=== PATIENT | male | born 1990 | race Hispanic/Latino ===

== ENCOUNTER 2020-11-28 23:52 | Inpatient (IN) | payer SELFPAY ==
[~2020-11-28] VITALS: Ht 177.8 cm; Wt 89.8 kg
[~2020-11-28 23:52] MED LIST: 0.9%NACL 50ML 50 ML IV ONE; ALTEPLASE 100 MG VIAL IVP ONE
[2020-11-29 00:46] LABS: CARBON DIOXIDE 30 mmol/L (21-32); CHLORIDE 100 mmol/L (101-111); CREATININE 1.1 mg/dL (0.5-1.5); GLOMERULAR FILTR. RATE CALC 84 mL/min (>60); GLUCOSE,RANDOM 115 mg/dL (70-105); POTASSIUM 3.9 mmol/L (3.5-5.1); SODIUM SERUM 139 mmol/L (136-145); UREA NITROGEN, BLOOD 24 mg/dL (7-18)
[2020-11-29 00:49] LABS: INR 0.98 (0.85-1.15); PROTHROMBIN TIME 10.7 SEC (9.6-11.6)
[2020-11-29 00:51] LABS: ALBUMIN 4.1 g/dL (3.5-5.0); ALCOHOL, BLOOD < 3 mg/dL (0-10); BILIRUBIN,TOTAL 0.4 mg/dL (0.2-1.0); CREATINE KINASE, TOTAL 363 U/L (21-232); LDL DIRECT 79 mg/dL (0-99); PARTIAL THROMBOPLASTIN TIME 27.2 SEC (26.3-35.5); TOTAL PROTEIN, SERUM 7.5 g/dL (6.0-8.3)
[2020-11-29 01:06] LABS: EOSINOPHILS % (AUTO) 4.1 % (0.0-8.0); HEMATOCRIT 42.7 % (42-54); LYMPHOCYTES % (AUTO) 43.1 % (21.0-51.0); MEAN CORPUSCULAR HEMOGLOBIN 29.6 pg (27.0-33.0); MEAN CORPUSCULAR HGB CONC 35.1 g/dL (32.0-36.0); MEAN CORPUSCULAR VOLUME 84.4 fL (79-99); NEUTROPHILS % (AUTO) 44.6 % (40.0-77.0); PLATELET COUNT (AUTO) 284 K/uL (130-400); RED BLOOD CELL COUNT(AUTO) 5.06 MIL/uL (4.50-6.20); RED CELL DISTRIBUTION WIDTH 12.4 % (11.0-15.5)
[2020-11-29 01:18] LABS: ALANINE AMINOTRANSFERASE 35 U/L (12-78); ASPARTATE AMINOTRANSFERASE 11 U/L (10-37)
[2020-11-29 01:21] LABS: APPEARANCE,URINE Clear (CLEAR); BILIRUBIN,URINE Negative (NEGATIVE); COLOR,URINE Yellow (YELLOW); GLUCOSE, URINE (UA) Negative (NEGATIVE); KETONES,URINE Negative (NEGATIVE); LEUKOCYTE ESTERASE ,URINE Negative (NEGATIVE); NITRATE,URINE Negative (NEGATIVE); OCCULT BLOOD,URINE Negative (NEGATIVE); PH,URINE 6.5 (5.0-8.0); PROTEIN,URINE Negative (NEGATIVE)
[2020-11-29 01:29] LABS: AMPHET/METH SCREEN,URINE NEGATIVE (NEGATIVE); BARBITURATE SCREEN, URINE NEGATIVE (NEGATIVE); BENZODIAZEPINES SCREEN,URINE NEGATIVE (NEGATIVE); CANNABINOID SCREEN,URINE NEGATIVE (NEGATIVE); COCAINE SCREEN,URINE NEGATIVE (NEGATIVE); OPIATE SCREEN,URINE NEGATIVE (NEGATIVE); PHENCYCLIDINE SCREEN,URINE NEGATIVE (NEGATIVE)
[2020-11-29] MEDS ORDERED: IOHEXOL 350 MG/ML 100ML INFUS..BTL IV ONE (01:41)
[2020-11-29] MEDS ORDERED: ONDANSETRON 4MG INJ IV PRN (03:00)
[2020-11-29] MEDS ORDERED: ACETAMINOPHEN 325 MG TAB PO PRN ×3 (03:00)
[2020-11-29] MEDS ORDERED: 0.9%NACL 1000ML 1,000 ML IV SCH (03:00)
[2020-11-29] MEDS ORDERED: TRANEXAMIC ACID 1000MG/10ML ONE (03:26)
[2020-11-29 07:27] LABS: HEMOGLOBIN A1C 5.7 % (4.0-6.0)
[2020-11-29 07:36] LABS: ALBUMIN 3.7 g/dL (3.5-5.0); BILIRUBIN,TOTAL 0.5 mg/dL (0.2-1.0); POTASSIUM 3.6 mmol/L (3.5-5.1)
[2020-11-29] MEDS ORDERED: LABETALOL 20MG VIAL IV PRN (08:00)
[2020-11-29] MEDS ORDERED: FAMOTIDINE 20MG VIAL IV ONE (08:03)
[2020-11-29 08:24] LABS: TOTAL PROTEIN, SERUM 6.9 g/dL (6.0-8.3)
[2020-11-29] MEDS ORDERED: ASPIRIN 325 MG TABLET PO SCH (09:00)
[2020-11-29] MEDS ORDERED: ATORVASTATIN 10 MG TABLET PO SCH (09:00)
[2020-11-29] MEDS: FAMOTIDINE 20MG VIAL IV SCH ×2 (09:00→21:00)
[2020-11-29] MEDS: ATORVASTATIN 40 MG TABLET PO SCH (21:00)
[2020-11-29] MEDS: FENOFIBRATE NANOCRYSTALLIZED 145 MG TAB PO SCH (21:00)
[2020-11-29] MEDS ORDERED: ATORVASTATIN 40 MG TABLET ONE (21:09)
[2020-11-29] MEDS ORDERED: FENOFIBRATE NANOCRYSTALLIZED 145 MG TAB ONE (21:09)
[2020-11-29] MEDS ORDERED: FAMOTIDINE 20MG TAB ONE (21:10)
[2020-11-29 22:20] VITALS: BP 139/87
[2020-11-29 23:00] VITALS: BP 134/79
[2020-11-29 23:32] VITALS: BP 123/65
[2020-11-30] VITALS (27 sets, daily range): BP systolic 90–155; BP diastolic 41–92
[2020-11-30 03:56] LABS: HEMATOCRIT 38.9 % (42-54); MEAN CORPUSCULAR HEMOGLOBIN 31.5 pg (27.0-33.0); MEAN CORPUSCULAR HGB CONC 37.3 g/dL (32.0-36.0); MEAN CORPUSCULAR VOLUME 84.4 fL (79-99); PLATELET COUNT (AUTO) 248 K/uL (130-400); RED BLOOD CELL COUNT(AUTO) 4.61 MIL/uL (4.50-6.20); RED CELL DISTRIBUTION WIDTH 12.1 % (11.0-15.5); WHITE BLOOD COUNT (AUTO) 8.1 K/uL (4.8-10.8)
[2020-11-30 04:09] LABS: PROTHROMBIN TIME 10.9 SEC (9.6-11.6)
[2020-11-30 04:10] LABS: PARTIAL THROMBOPLASTIN TIME 27.1 SEC (26.3-35.5)
[2020-11-30 04:24] LABS: ALBUMIN 3.5 g/dL (3.5-5.0); BILIRUBIN,DIRECT < 0.1 mg/dL (0.0-0.3); BILIRUBIN,TOTAL 0.5 mg/dL (0.2-1.0); CARBON DIOXIDE 26 mmol/L (21-32); CHLORIDE 101 mmol/L (101-111); CREATININE 1.1 mg/dL (0.5-1.5); GLOMERULAR FILTR. RATE CALC 84 mL/min (>60); GLUCOSE,RANDOM 135 mg/dL (70-105); PHOSPHORUS 4.6 mg/dL (2.5-4.9); POTASSIUM 3.6 mmol/L (3.5-5.1); SODIUM SERUM 135 mmol/L (136-145); TRIGLYCERIDES 1005 mg/dL (30-200); UREA NITROGEN, BLOOD 20 mg/dL (7-18)
[2020-11-30 05:19] LABS: ERYTHROCYTE SEDIMENTATION RATE 7 MM/HR (0-15)
[2020-11-30 06:17] LABS: BAND NEUTROPHILS % (MANUAL) 6 % (0-2); BASOPHILS % (MANUAL) 1 % (0-2); EOSINOPHILS % (MANUAL) 4 % (1-6); LYMPHOCYTES % (MANUAL) 40 % (22-44); MAN.DIFF COMMENT-IMPRESSION MANUAL DIFFERENTIAL; MONOCYTES % (MANUAL) 5 % (2-9); SEGMENTED NEUTROPHILS % 44 % (40-70)
[2020-11-30 06:18] LABS: PLATELET MORPHOLOGY COMMENT ADEQUATE
[2020-11-30 06:26] LABS: ALANINE AMINOTRANSFERASE 80 U/L (12-78); ASPARTATE AMINOTRANSFERASE 35 U/L (10-37); TOTAL PROTEIN, SERUM 6.6 g/dL (6.0-8.3)
[2020-11-30] MEDS: FAMOTIDINE 20MG VIAL IV SCH ×2 (08:17→21:14)
[2020-11-30] MEDS ORDERED: GADOTERATE MEGLUMINE 10 MMOL/20 ML VIAL IV ONE (11:42)
[2020-11-30] MEDS ORDERED: AEC81 PO (17:36)
[2020-11-30] MEDS ORDERED: ATOR40TA69 PO (17:36)
[2020-11-30] MEDS ORDERED: FENO145T PO (17:36)
[2020-11-30] MEDS: FENOFIBRATE NANOCRYSTALLIZED 145 MG TAB PO SCH (21:13)
[2020-11-30] MEDS: ATORVASTATIN 40 MG TABLET PO SCH (21:14)
[2020-11-30] MEDS ORDERED: EPINEPHRINE PF 1MG AMP ONE (22:08)
[2020-12-01] VITALS: BP 119/67
[2020-12-01 04:00] VITALS: BP 108/50
[2020-12-01 07:00] VITALS: BP 114/62
[2020-12-01 08:00] VITALS: BP 127/56
[2020-12-01] MEDS: FAMOTIDINE 20MG VIAL IV SCH (08:11)
[2020-12-01 09:00] VITALS: BP 126/79
[2020-12-01] MEDS ORDERED: ASPIRIN 81 MG EC TAB PO SCH (09:00)
[2020-12-01 10:00] VITALS: BP 129/83
== END 2020-12-01 11:14 | disposition home or self-care (01) | DRG 62 ==
LOC: EDH 23:52 → EDHIP 23:53 → 2CH 11-29 21:10
PROVIDERS: ADMIT Family Medicine; ATTEND Family Medicine
DX: I63.9 Cerebral infarction, unspecified (principal); G81.94 Hemiplegia, unspecified affecting left nondominant side; R74.01 Elevation of levels of liver transaminase levels
CPT/HCPCS: 36415; 70450; 70544; 70553; 71045; 80048; 80053; 80061; 80076; 80305; 81003; 82550; 82948; 83036; 83721; 83735; 84100; 84478; 84484; 85025; 85610; 85651; 85730; 93005; 93306; 93356; 93880; G0378; J0171; J2997; J3490; Q9967